=== PATIENT | female | born 1940 ===

== ENCOUNTER 2020-11-09 12:59 | Outpatient (REF) | payer MEDICARE, MEDICAID, SELFPAY ==
[2020-11-09 13:58] LABS: Hematocrit 39.7 % (37-47); Hemoglobin 12.1 g/dl (12.0-16.0)
[2020-11-09 14:40] LABS: Alanine Aminotransferase 47 U/L (0-31); Albumin Level 4.4 g/dL (3.5-5.0); Alkaline Phosphatase 74 U/L (39-117); Anion Gap 15 (12-20); Aspartate Amino Transferase 33 U/L (5-31); Bilirubin Total 0.5 mg/dL (0.0-1.0); Blood Urea Nitrogen 18 mg/dL (9-16); Carbon Dioxide 28 mmol/L (22-29); Chloride 102 mmol/L (96-108); Estimated Glomerular Filt Rate 51; Glucose Random 96 mg/dL (60-115); Potassium 4.3 mmol/L (3.3-5.1); Sodium 141 mmol/L (135-145); Total Protein 7.7 g/dL (6.5-8.0)
== END 2020-11-09 13:00 | disposition home or self-care (01) ==
LOC: HO.HMGCLDS 12:59
PROVIDERS: PCP Internal Medicine; Visit Provider Internal Medicine
DX: G30.9 Alzheimer's disease, unspecified (principal); F02.80 Dementia in other diseases classified elsewhere, unspecified severity, without behavioral disturbance, psychotic disturbance, mood disturbance, and anxiety; F41.9 Anxiety disorder, unspecified; M19.90 Unspecified osteoarthritis, unspecified site; Z91.09 Other allergy status, other than to drugs and biological substances; N39.46 Mixed incontinence; R54 Age-related physical debility
CPT/HCPCS: 36415; 80053; 85014; 85018

== ENCOUNTER 2021-05-20 13:29 | Outpatient (REF) | payer MEDICARE, MEDICAID, SELFPAY ==
[2021-05-20 16:31] LABS: Hematocrit 40.7 % (37.0-47.0); Hemoglobin 12.6 g/dl (12.0-16.0)
[2021-05-20 16:39] LABS: Estimated Average Glucose 108 mg/dL; Hemoglobin A1c % 5.4 %
[2021-05-20 16:53] LABS: Alanine Aminotransferase 10 U/L (0-31); Albumin Level 4.3 g/dL (3.5-5.0); Alkaline Phosphatase 60 U/L (39-117); Anion Gap 10 (12-20); Aspartate Amino Transferase 19 U/L (5-31); Bilirubin Total 0.6 mg/dL (0.0-1.0); Blood Urea Nitrogen 18 mg/dL (9-16); Calcium 10.2 mg/dL (8.4-10.2); Carbon Dioxide 32 mmol/L (22-29); Chloride 103 mmol/L (96-108); Estimated Glomerular Filt Rate 59; Glucose Random 76 mg/dL (60-115); Potassium 5.3 mmol/L (3.3-5.1); Sodium 140 mmol/L (135-145); Total Protein 7.3 g/dL (6.5-8.0)
[2021-05-20 17:13] LABS: TSH reflex Free T4 0.93 uIU/mL (0.32-4.0)
== END 2021-05-20 13:30 | disposition home or self-care (01) ==
LOC: HO.HMGCLDS 13:29
PROVIDERS: Visit Provider Internal Medicine
DX: Z00.01 Encounter for general adult medical examination with abnormal findings (principal); G30.9 Alzheimer's disease, unspecified; F02.80 Dementia in other diseases classified elsewhere, unspecified severity, without behavioral disturbance, psychotic disturbance, mood disturbance, and anxiety; F41.9 Anxiety disorder, unspecified; N39.46 Mixed incontinence; Z91.09 Other allergy status, other than to drugs and biological substances
CPT/HCPCS: 36415; 80053; 83036; 84443; 85014; 85018

== ENCOUNTER 2021-11-24 14:37 | Outpatient (REF) | payer MEDICARE, MEDICAID, SELFPAY ==
[2021-11-24 17:11] LABS: Alanine Aminotransferase 12 U/L (0-31); Albumin Level 4.2 g/dL (3.5-5.0); Alkaline Phosphatase 55 U/L (39-117); Anion Gap 14 (12-20); Aspartate Amino Transferase 20 U/L (5-31); Bilirubin Total 0.3 mg/dL (0.0-1.0); Blood Urea Nitrogen 24 mg/dL (9-16); Calcium 9.1 mg/dL (8.4-10.2); Carbon Dioxide 29 mmol/L (22-29); Chloride 105 mmol/L (96-108); Estimated Glomerular Filt Rate > 60; Glucose Random 108 mg/dL (60-115); Potassium 4.7 mmol/L (3.3-5.1); Sodium 143 mmol/L (135-145)
== END 2021-11-24 14:38 | disposition home or self-care (01) ==
LOC: HO.HMGCLDS 14:37
PROVIDERS: PCP Internal Medicine; Visit Provider Internal Medicine
DX: G30.9 Alzheimer's disease, unspecified (principal); F02.80 Dementia in other diseases classified elsewhere, unspecified severity, without behavioral disturbance, psychotic disturbance, mood disturbance, and anxiety; F41.9 Anxiety disorder, unspecified
CPT/HCPCS: 36415; 80053

== ENCOUNTER 2022-11-09 14:57 | Outpatient (AMB) | payer MEDICARE, MEDICAID, SELFPAY ==
--- NOTE | 2022-11-09 14:59 | MHC.OFFWIV ---
Intake Intake Visit Reasons: Right Hip Pain/Left Arm Pain Patient Tobacco Use Status: Never used Tobacco Allergies No Known Allergies Allergy (Verified 03/23/22 14:23) PFSH Medical History Alzheimers disease Anxiety Arthrosis Environmental allergies Frail elderly Osteoporosis Urinary incontinence, mixed Surgical History No pertinent past surgical history Family History Father No problems noted. Mother HTN (hypertension) Social History Housing: House Alcohol intake: never Patient Tobacco Use Status: Never used Tobacco e-Cigarette/Vaping Use: Never Used Current occupational status: retired Cognitive needs: Yes Hearing needs: No Vision needs: No Coding Diagnoses
[2022-11-09 15:02] VITALS: BP 130/64; PULSE 75; O2SAT 98; BMI 19.8
--- NOTE | 2022-11-09 15:03 | A.OFFPC_ITS ---
Vital Signs 11/09/22 15:02 Height 5 ft 2 in Weight 108 lb BMI 19.8 BP 130/64 Blood Pressure Location Rt brachial Position Sitting Pulse 75 Pulse Source Pulse Oximeter Pulse Oximetry (%) 98 Oxygen Delivery Method Room Air Intake Visit Reasons: Right Hip Pain/Left Arm Pain Allergies No Known Allergies Allergy (Verified 11/09/22 15:02) Tobacco use date assessed: 11/09/22 Fall risk assessment: No Falls in past year Last assessed Fall Risk: 11/09/22 Dental Screening Dental Screen Date: 11/09/22 Did you have a dental visit in the last 12 months?: No Did you have a dental problem in the last 6 months where you did not have access to dental care?: No HPI Right Hip Pain/Left Arm Pain HPI Details 82-year-old female with dementia came in with a chief complaint of pain left shoulder Tender over rotator cuff I have ordered x-ray for her patient son is here he was reluctant to take her to orthopedic but then he agreed Referral placed [facility] Medical History Alzheimers disease Anxiety Arthrosis Environmental allergies Frail elderly Osteoporosis Urinary incontinence, mixed Surgical History No pertinent past surgical history Family History Father No problems noted. Mother HTN (hypertension) Social History Housing: House Alcohol intake: never Patient Tobacco Use Status: Never used Tobacco e-Cigarette/Vaping Use: Never Used Current occupational status: retired Cognitive needs: Yes Hearing needs: No Vision needs: No Questionnaire Thrive Questionnaire Date Thrive assessed: 11/24/21 AUDIT C Alcohol Use Questionnaire (AUDIT-C) 1. How often do you have a drink containing alcohol?: Never 3. How often do you have six or more drinks on one occasion?: Never Total Score: 0 AVTAR-7 AMB Questionnaire AVTAR-7 Date AVTAR - 7 assessed: 11/24/21 Source: Developed by Drs. Sumit Mancera, Gisella Olivares, Lew Rudolph and colleagues, with an educational david from [employer]. Review of Systems Const All systems reviewed & are unremarkable except as noted in HPI and below Physical exam (Primary Care) Vital Signs: Last Vital Signs Pulse 75 11/09/22 15:02 BP 130/64 11/09/22 15:02 Pulse Ox 98 11/09/22 15:02 Oxygen Delivery Method Room Air 11/09/22 15:02 BMI result Body Mass Index 19.8 Tobacco/Smoking Status: Tobacco use Status Tobacco use date assessed 11/09/22 11/09/22 15:05 Patient Tobacco Use Status Never used Tobacco 11/09/22 15:05 e-Cigarette/Vaping Use Never Used 11/09/22 15:05 Thrive Assessment: Date of Thrive Assessment Date Thrive assessed 11/24/21 11/09/22 15:05 Const General: no acute distress Orientation/consciousness: patient oriented x3 Eyes General: appearance normal, both eyes and all related structures Resp Effort & Inspection: normal respiratory effort and able to speak in complete sentences Auscultation: clear to auscultation bilaterally Neuro General: patient oriented x3 Extrem Shoulder/upper arm images: 1. Tender with palpation, range of motion limited because of pain Psych Mental Status: mental status grossly normal Assessment and Plan Assessment & Plan (1) Shoulder pain: Code(s): M25.519 - Pain in unspecified shoulder Plan 82-year-old female with dementia came in with a chief complaint of pain left shoulder Tender over rotator cuff I have ordered x-ray for her patient son is here he was reluctant to take her to orthopedic but then he agreed Referral placed Orders: Orders XR shoulder LT min 2V Today M25.519 - Pain in unspecified shoulder Referrals Orthopedics Referral M25.519 - Pain in unspecified shoulder Coding Level of Care Code Est Pt Level 3 (42078) Diagnoses Shoulder pain M25.519
== END 2022-11-09 15:57 | disposition home or self-care (01) ==
PROVIDERS: PCP Internal Medicine; Visit Provider Internal Medicine
DX: M25.519 Pain in unspecified shoulder (principal)
CPT/HCPCS: 99213

== ENCOUNTER 2022-11-09 15:13 | Outpatient (REF) | payer MEDICARE, MEDICAID, SELFPAY ==
--- NOTE | ~2022-11-09 | XR_ITS ---
EXAMINATION: XR SHOULDER, LEFT CLINICAL INFORMATION: Pain COMPARISON: None available. TECHNIQUE: Three views of the left shoulder. FINDINGS: Bones have normal alignment. No acute fracture or subluxation. The soft tissues are unremarkable. There are small marginal osteophytes of the mildly degenerated acromioclavicular joint. The humeral head is well-positioned over the intact glenoid. The glenohumeral joint space is maintained. Incidentally noted is focal subcortical cystlike lucency of the superolateral aspect of the humeral head. No suspicious bone lesion. The acromiohumeral distance is normal. No evidence of calcium deposition within rotator cuff tendons. XR/XR shoulder LT min 2V IMPRESSION: * Mild osteoarthritis of the acromioclavicular joint. * No evidence of calcific tendinopathy.
== END 2022-11-09 15:14 | disposition home or self-care (01) ==
LOC: HO.HMGCX 15:13
PROVIDERS: PCP Internal Medicine; Visit Provider Internal Medicine
DX: M25.512 Pain in left shoulder (principal)
CPT/HCPCS: 73030

== ENCOUNTER 2023-04-12 11:27 | Outpatient (AMB) | payer MEDICARE, MEDICAID, SELFPAY ==
[2023-04-12 11:28] VITALS: BP 118/62; PULSE 62; O2SAT 99; BMI 19.9
--- NOTE | 2023-04-12 11:28 | MHC.PC.OV ---
Vital Signs 04/12/23 11:28 Height 5 ft 2 in Weight 109 lb BMI 19.9 BP 118/62 Blood Pressure Location Rt brachial Position Sitting Pulse 62 Pulse Source Pulse Oximeter Pulse Oximetry (%) 99 Oxygen Delivery Method Room Air Intake Visit Reasons: PE/ Insurance Covered Allergies No Known Allergies Allergy (Verified 04/12/23 11:30) Medication List - Last Reconciled 04/12/23 by Rajni Holliday MD acetaminophen 325 mg PO TID PRN 90 days [Adult diapers 3 times a day] donepezil 10 mg PO DAILY facial-body wipes As directed fluoxetine 40 mg PO DAILY fluticasone propionate 50 mcg/actuation 1 spray intranasal DAILY food supplemt, lactose-reduced (Ensure oral liquid) 1 ea PO DAILY 90 days latex gloves (Latex Gloves, Medium) As directed loratadine 10 mg PO DAILY 90 days memantine 10 mg PO BID naphazoline-pheniramine 0.025-0.3 % (Eye Allergy Relief (naphazoline-pheniramine)) 1 drp ophthalmic (eye) QID PRN 30 days [Personal cleansing cloths 1 pkg topical DIRECTED] Tobacco use date assessed: 04/12/23 Fall risk assessment: 1 Fall in past year Last assessed Fall Risk: 04/12/23 Dental Screening Dental Screen Date: 04/12/23 Did you have a dental visit in the last 12 months?: No Was dental information given to patient?: No HPI PE/ Insurance Covered HPI Details Patient is here for physical examination She lives in the same house as hangersmith and need a paperwork filled She is also due for labs Patient have severe dementia and has been having difficulty gaining weight Family is requesting a script for ensure which I have provided. She also have a severe anxiety but is doing better with fluoxetine. Family wants a regular flu vaccine as they are not able to take her to pharmacy for senior dose. Breast exam declined Follow-up 4 months physical exam 1 year [facility] Medical History Arthrosis Urinary incontinence, mixed Frail elderly Osteoporosis Anxiety Environmental allergies Alzheimers disease Surgical History No pertinent past surgical history Family History Father No problems noted. Mother HTN (hypertension) Social History Housing: House Alcohol intake: never Patient Tobacco Use Status: Never used Tobacco e-Cigarette/Vaping Use: Never Used Current occupational status: retired Cognitive needs: Yes Hearing needs: No Vision needs: No Questionnaire PHQ-9 Over the last 2 weeks, how often have you been bothered by any of the following problems? 1. Little interest or pleasure in doing things: more than half the days 2. Feeling down, depressed, or hopeless: several days 3. Trouble falling or staying asleep, or sleeping too much: more than half the days 4. Feeling tired or having little energy: more than half the days 5. Poor appetite or overeating: nearly every day 6. Feeling bad about yourself - or that you are a failure or have let yourself or your family down: several days 7. Trouble concentrating on things, such as reading the newspaper or watching television: more than half the days 8. Moving or speaking so slowly that other people could have noticed. Or the opposite - being so fidgety or restless that you have been moving around a lot more than usual: more than half the days 9. Thoughts that you would be better off or of hurting yourself in some way: more than half the days Total score: 17 Depression Screening Interpretation: Positive Depression Screening Follow-up: Existing condition and In treatment Depression Screening Done: Yes 23420 - PHQ-9 Billing: Yes Source: Developed by Drs. Sumit Mancera, Gisella Olivares, Lew Rudolph and colleagues, with an educational david from [employer]. Thrive Questionnaire Date Thrive assessed: 04/12/23 I am a: Patient What is your living situation today?: I have a steady place to live Within the past 12 months, did the food you bought not last and you didn't have the money to get more?: Sometimes True Within the past 12 months, did you worry whether your food would run out before you got money to buy more?: Sometimes True Do you have trouble paying for medicines?: No Do you have trouble getting transportation to medical appointments?: No Do you have trouble paying your heating and electricity bill?: No Do you have trouble taking care of your child, family member or friend?: Yes Do you have trouble with day-to-day activities such as bathing, preparing meals, shopping, managing finances, etc.?: Yes Are you currently unemployed and looking for a job?: Yes Are you interested in more education?: No Please select the resources that you would like help with: None Currently or been in a relationship where the following occur: no concerns reported AUDIT C Alcohol Use Questionnaire (AUDIT-C) 1. How often do you have a drink containing alcohol?: Never Total Score: 0 AVTAR-7 AMB Questionnaire AVTAR-7 Date AVTAR - 7 assessed: 04/12/23 Feeling nervous, anxious, or on edge: 0 = Not at all Not being able to stop or control worryin = Not at all Worrying too much about different things: 0 = Not at all Trouble relaxin = Not at all Being so restless that it is hard to sit still: 0 = Not at all Becoming easily annoyed or irritable: 0 = Not at all Feeling afraid as if something awful might happen: 0 = Not at all Total AVTAR-7 score (0-4 normal; 5-9 mild; 10-14 moderate; 15-21 severe): 0 Source: Developed by Drs. Sumit Mancera, Gisella Olivares, Lew Rudolph and colleagues, with an educational david from [employer]. AVTAR-7 Assessment Billing AVTAR-7 Assessment Tool: AVTAR-7 Assessment 55383 Review of Systems Const Denies chills, Denies fever(s) and Denies headache(s) ENT Denies headache(s), Denies nasal discharge, Denies nasal obstruction, Denies odynophagia and Denies sinus pain Card Denies chest pain at rest and Denies chest pain with activity Resp Denies cough and Denies hemoptysis GI Denies diarrhea, Denies odynophagia, Denies vomiting and Denies hematemesis Reports as per HPI Skin/Breast Reports as per HPI Neuro Denies Neuro-related abnormal movements, Denies Abnormal speech present and Denies headache(s) Endo Reports as per HPI Jose/Lymph Reports as per HPI Aller/Immun Reports as per HPI Physical exam (Primary Care) Vital Signs: Last Vital Signs Pulse 62 04/12/23 11:28 BP 118/62 04/12/23 11:28 Pulse Ox 99 04/12/23 11:28 Oxygen Delivery Method Room Air 04/12/23 11:28 BMI result Body Mass Index 19.9 Tobacco/Smoking Status: Tobacco use Status Tobacco use date assessed 04/12/23 04/12/23 11:32 Patient Tobacco Use Status Never used Tobacco 04/12/23 11:32 e-Cigarette/Vaping Use Never Used 04/12/23 11:32 PHQ-9: PHQ-9 Score PHQ-9: Total score 17 04/12/23 12:03 Depression Screening Interpretation: Positive Depression Screening Follow-up: Existing condition and In treatment Thrive Assessment: Date of Thrive Assessment Date Thrive assessed 04/12/23 04/12/23 11:58 Currently or been in a relationship where the following occur: no concerns reported Const General: cooperative, comfortable and no acute distress Orientation/consciousness: patient oriented x3 HENMT Head: Yes normocephalic and Yes atraumatic Eyes General: appearance normal, both eyes and all related structures Pupils: Equal, round and reactive pupils present EOM: EOMs intact bilaterally Neck Neck: Yes supple and No lymphadenopathy Thyroid: Thyroid normal Lymphatic: no lymphadenopathy noted Resp Effort & Inspection: normal respiratory effort and able to speak in complete sentences Auscultation: clear to auscultation bilaterally Cardio Heart sounds: S1 normal heart sound present and S2 normal heart sound present GI Palpation (GI): Soft to palpation and nontender Auscultation: normal bowel sounds General: Yes no CVA tenderness Back/Spine/Pelvis Back: no CVA tenderness Skin General skin exam: elasticity normal and turgor normal Neuro General: patient oriented x3 Cranial nerves: Yes Equal, round and reactive pupils present Speech: No Abnormal speech present Extrem General: Yes normal exam except as noted and No edema Office Procedures Flu Questionnaire Does the patient have a severe egg allergy?: No Does the patient have severe life threatening allergies?: No Does the patient have a fever or illness today?: No Has the patient ever had Guillain-Tangier Syndrome?: No Has the patient ever had any past reaction to a flu shot?: No Immunizations flu vacc [id number] 6mos up(PF) 60 mcg(15 mcgx4)/0.5 mL IM syringe Performing Provider: Rajni Holliday MD Performing Location: [facility] Administered by: Lauro Jewell CMA on 04/12/23 12:03 Dose Route Admin Location Dispensed Lot Number Expiration Date 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 0.5 mL IM Left Deltoid 0.5 mL [id number] 10/08/23 92270-408-04 [employer] VIS Given Date VIS Provided VIS Publication Date 04/12/23 Single Vaccine 20 Eligibility Eligibility Date Funding Source Not [facility] Eligible 04/12/23 Private Assessment and Plan Assessment & Plan (1) Encounter for general adult medical examination with abnormal findings: Code(s): Z00.01 - Encounter for general adult medical examination with abnormal findings (2) Urinary incontinence, mixed: Code(s): N39.46 - Mixed incontinence (3) Frail elderly: Code(s): R54 - Age-related physical debility (4) Osteoporosis: Code(s): M81.0 - Age-related osteoporosis without current pathological fracture Qualifiers: Osteoporosis type: age-related Presence of current pathological fracture: without current pathological fracture Qualified Code(s): M81.0 - Age-related osteoporosis without current pathological fracture (5) Anxiety: Code(s): F41.9 - Anxiety disorder, unspecified (6) Environmental allergies: Code(s): Z91.09 - Other allergy status, other than to drugs and biological substances (7) Alzheimers disease: Code(s): G30.9 - Alzheimer's disease, unspecified; F02.80 - Dementia in other diseases classified elsewhere, unspecified severity, without behavioral disturbance, psychotic disturbance, mood disturbance, and anxiety (8) Lower back pain: Code(s): M54.5 - Low back pain Qualifiers: Back pain laterality: bilateral Chronicity: chronic Sciatica presence: without sciatica Qualified Code(s): M54.50 - Low back pain, unspecified; G89.29 - Other chronic pain (9) Arthrosis: Code(s): M19.90 - Unspecified osteoarthritis, unspecified site Plan Patient is here for physical examination She lives in the same house as hangersmith and need a paperwork filled She is also due for labs Patient have severe dementia and has been having difficulty gaining weight Family is requesting a script for ensure which I have provided. She also have a severe anxiety but is doing better with fluoxetine. Allergies are stable Patient also have osteoporosis I have added vitamin-D level Multiple joint arthritis stable Family wants a regular flu vaccine as they are not able to take her to pharmacy for senior dose. Follow-up 4 months physical exam 1 year Orders: Orders Vitamin B12 Today F02.80 - Dementia in other diseases classified elsewhere, unspecified severity, without behavioral disturbance, psychotic disturbance, mood disturbance, and anxiety, F41.9 - Anxiety disorder, unspecified, G30.9 - Alzheimer's disease, unspecified, M54.5 - Low back pain, M81.0 - Age-related osteoporosis without current pathological fracture, N39.46 - Mixed incontinence, R54 - Age-related physical debility, Z00.01 - Encounter for general adult medical examination with abnormal findings, Z91.09 - Other allergy status, other than to drugs and biological substances Vitamin D 25-OH (D2 and D3) Today F02.80 - Dementia in other diseases classified elsewhere, unspecified severity, without behavioral disturbance, psychotic disturbance, mood disturbance, and anxiety, F41.9 - Anxiety disorder, unspecified, G30.9 - Alzheimer's disease, unspecified, M54.5 - Low back pain, M81.0 - Age-related osteoporosis without current pathological fracture, N39.46 - Mixed incontinence, R54 - Age-related physical debility, Z00.01 - Encounter for general adult medical examination with abnormal findings, Z91.09 - Other allergy status, other than to drugs and biological substances Complete Blood Count Auto Diff Today F02.80 - Dementia in other diseases classified elsewhere, unspecified severity, without behavioral disturbance, psychotic disturbance, mood disturbance, and anxiety, F41.9 - Anxiety disorder, unspecified, G30.9 - Alzheimer's disease, unspecified, M19.90 - Unspecified osteoarthritis, unspecified site, M54.5 - Low back pain, M81.0 - Age-related osteoporosis without current pathological fracture, N39.46 - Mixed incontinence, R54 - Age-related physical debility, Z00.01 - Encounter for general adult medical examination with abnormal findings, Z91.09 - Other allergy status, other than to drugs and biological substances Comprehensive Met. Panel Today F02.80 - Dementia in other diseases classified elsewhere, unspecified severity, without behavioral disturbance, psychotic disturbance, mood disturbance, and anxiety, F41.9 - Anxiety disorder, unspecified, G30.9 - Alzheimer's disease, unspecified, M54.5 - Low back pain, M81.0 - Age-related osteoporosis without current pathological fracture, N39.46 - Mixed incontinence, R54 - Age-related physical debility, Z00.01 - Encounter for general adult medical examination with abnormal findings, Z91.09 - Other allergy status, other than to drugs and biological substances TSH reflex Free T4 Today F02.80 - Dementia in other diseases classified elsewhere, unspecified severity, without behavioral disturbance, psychotic disturbance, mood disturbance, and anxiety, F41.9 - Anxiety disorder, unspecified, G30.9 - Alzheimer's disease, unspecified, M54.5 - Low back pain, M81.0 - Age-related osteoporosis without current pathological fracture, N39.46 - Mixed incontinence, R54 - Age-related physical debility, Z00.01 - Encounter for general adult medical examination with abnormal findings, Z91.09 - Other allergy status, other than to drugs and biological substances LDL Cholesterol Direct Today F02.80 - Dementia in other diseases classified elsewhere, unspecified severity, without behavioral disturbance, psychotic disturbance, mood disturbance, and anxiety, F41.9 - Anxiety disorder, unspecified, G30.9 - Alzheimer's disease, unspecified, M54.5 - Low back pain, M81.0 - Age-related osteoporosis without current pathological fracture, N39.46 - Mixed incontinence, R54 - Age-related physical debility, Z00.01 - Encounter for general adult medical examination with abnormal findings, Z91.09 - Other allergy status, other than to drugs and biological substances Influenza [id number] Immunization Today Z23 - Encounter for immunization Coding Level of Care Code Est Pt Prev Care >65y(95417) Diagnoses Encounter for general adult medical examination with abnormal findings Z00.01 Urinary incontinence, mixed N39.46 Frail elderly R54 Age-related osteoporosis without current pathological fracture M81.0 Osteoporosis type: age-related Presence of current pathological fracture: without current pathological fracture Anxiety F41.9 Environmental allergies Z91.09 Alzheimers disease G30.9; F02.80 Chronic bilateral low back pain without sciatica M54.50; G89.29 Back pain laterality: bilateral Chronicity: chronic Sciatica presence: without sciatica Arthrosis M19.90 Additional Codes AVTAR-7 Assessment Billing - AVTAR-7 Assessment Tool: AVTAR-7 Assessment 20213 ([id number])
== END 2023-04-12 12:01 | disposition home or self-care (01) ==
PROVIDERS: Visit Provider Internal Medicine
DX: Z00.00 Encounter for general adult medical examination without abnormal findings (principal); G30.9 Alzheimer's disease, unspecified; F02.80 Dementia in other diseases classified elsewhere, unspecified severity, without behavioral disturbance, psychotic disturbance, mood disturbance, and anxiety; Z23 Encounter for immunization; N39.46 Mixed incontinence; R54 Age-related physical debility; M81.0 Age-related osteoporosis without current pathological fracture; F41.9 Anxiety disorder, unspecified; Z91.09 Other allergy status, other than to drugs and biological substances; M54.50 Low back pain, unspecified; G89.29 Other chronic pain; M19.90 Unspecified osteoarthritis, unspecified site
CPT/HCPCS: 90471; 90686; 96127; 99397

== ENCOUNTER 2023-04-12 12:05 | Outpatient (REF) | payer OTHER, SELFPAY | END 2023-04-12 12:06 | disposition home or self-care (01) | LOC: HO.HMGCLDS 12:05 | PROVIDERS: PCP Internal Medicine; Visit Provider Internal Medicine | DX: Z00.01 Encounter for general adult medical examination with abnormal findings (principal); N39.46 Mixed incontinence; R54 Age-related physical debility; M81.0 Age-related osteoporosis without current pathological fracture; F41.9 Anxiety disorder, unspecified; G30.9 Alzheimer's disease, unspecified; F02.80 Dementia in other diseases classified elsewhere, unspecified severity, without behavioral disturbance, psychotic disturbance, mood disturbance, and anxiety; M19.90 Unspecified osteoarthritis, unspecified site; M54.50 Low back pain, unspecified; Z91.09 Other allergy status, other than to drugs and biological substances | CPT/HCPCS: 36415; 80053; 82306; 82607; 83721; 84443; 85025 ==

== ENCOUNTER 2023-09-06 13:23 | Outpatient (AMB) | payer OTHER, SELFPAY ==
[2023-09-06 13:25] VITALS: BP 112/58; PULSE 62; O2SAT 98; BMI 20.2
--- NOTE | 2023-09-06 13:25 | MHC.PC.OV ---
Vital Signs 09/06/23 13:25 Height 5 ft 2 in Weight 110 lb 4 oz BMI 20.2 BP 112/58 L Blood Pressure Location Lt brachial Position Sitting Pulse 62 Pulse Source Pulse Oximeter Pulse Oximetry (%) 98 Oxygen Delivery Method Room Air Intake Visit Reasons: 4 month follow up Allergies No Known Allergies Allergy (Verified 09/06/23 13:25) Medication List - Last Reconciled 09/06/23 by Rajni Holliday MD acetaminophen 325 mg PO TID PRN 90 days [Adult diapers with tabs 3 times a day] donepezil 10 mg PO DAILY facial-body wipes As directed fluoxetine 40 mg PO DAILY fluticasone propionate 50 mcg/actuation 1 spray intranasal DAILY food supplemt, lactose-reduced (Ensure oral liquid) 1 ea PO DAILY 90 days latex gloves (Latex Gloves, Medium) As directed-3 pair per day loratadine 10 mg PO DAILY 90 days memantine 10 mg PO BID naphazoline-pheniramine 0.025-0.3 % (Eye Allergy Relief (naphazoline-pheniramine)) 1 drp ophthalmic (eye) QID PRN 30 days [Personal cleansing cloths As directed] Tobacco use date assessed: 09/06/23 Fall risk assessment: No Falls in past year Last assessed Fall Risk: 09/06/23 Dental Screening Dental Screen Date: 09/06/23 Did you have a dental visit in the last 12 months?: No Did you have a dental problem in the last 6 months where you did not have access to dental care?: No Was dental information given to patient?: No HPI 4 month follow up HPI Details Patient is 83-year-old female came in today for her regular follow-up appointment Patient have severe dementia she is dependent family for all her needs She wears diapers and sometimes have bowel movement in the diaper as well. Her daughter is here with patient and is requesting a script for body wipes has patient sometimes declined to take a shower. She is now drinking ensure her weight is stable She also have a severe anxiety but is doing better with fluoxetine. Allergies are stable , Flonase script sent Patient also have osteoporosis I have added vitamin-D level Multiple joint arthritis stable She had elevated lipids but family does not want any treatment for that Patient will return in 4 months for follow-up appointment [facility] Medical History Arthrosis Urinary incontinence, mixed Frail elderly Osteoporosis Anxiety Environmental allergies Alzheimers disease Surgical History No pertinent past surgical history Family History Father No problems noted. Mother HTN (hypertension) Social History Housing: House Alcohol intake: never Patient Tobacco Use Status: Never used Tobacco e-Cigarette/Vaping Use: Never Used service: No Current occupational status: retired Cognitive needs: Yes Hearing needs: No Vision needs: No Questionnaire Thrive Questionnaire Date Thrive assessed: 04/12/23 AUDIT C Alcohol Use Questionnaire (AUDIT-C) 1. How often do you have a drink containing alcohol?: Never 3. How often do you have six or more drinks on one occasion?: Never Total Score: 0 Score Reviewed/Action Taken: Yes AVTAR-7 AMB Questionnaire AVTAR-7 Date AVTAR - 7 assessed: 04/12/23 Source: Developed by Drs. Sumit Mancera, Gisella Olivares, Lew Rudolph and colleagues, with an educational david from [employer]. Review of Systems Const Denies chills and Denies fever(s) ENT Denies epistaxis and Denies nasal discharge Card Denies chest pain Resp Denies chest congestion, Denies cough and Denies hemoptysis GI Denies diarrhea and Denies nausea Skin/Breast Denies rash Neuro Reports no additional complaints Psych Reports no additional complaints Endo Reports no additional complaints Physical exam (Primary Care) Vital Signs: Last Vital Signs Pulse 62 09/06/23 13:25 BP 112/58 L 09/06/23 13:25 Pulse Ox 98 09/06/23 13:25 Oxygen Delivery Method Room Air 09/06/23 13:25 BMI result Body Mass Index 20.2 Tobacco/Smoking Status: Tobacco use Status Tobacco use date assessed 09/06/23 09/06/23 13:27 Patient Tobacco Use Status Never used Tobacco 09/06/23 13:27 e-Cigarette/Vaping Use Never Used 09/06/23 13:27 Thrive Assessment: Date of Thrive Assessment Date Thrive assessed 04/12/23 09/06/23 13:27 Const General: cooperative, comfortable and no acute distress HENMT Head: Yes normocephalic Eyes General: appearance normal, both eyes and all related structures Neck Neck: Yes supple Resp Effort & Inspection: normal respiratory effort, no cough and no stridor Cardio Rhythm: regular rhythm Heart sounds: S1 normal heart sound present and S2 normal heart sound present Skin General skin exam: turgor normal Neuro General: tone normal and moves all extremities Extrem Right lower extremity: no edema Left lower extremity: no edema Assessment and Plan Assessment & Plan (1) Alzheimers disease: Code(s): G30.9 - Alzheimer's disease, unspecified; F02.80 - Dementia in other diseases classified elsewhere, unspecified severity, without behavioral disturbance, psychotic disturbance, mood disturbance, and anxiety (2) Urinary incontinence, mixed: Code(s): N39.46 - Mixed incontinence (3) Frail elderly: Code(s): R54 - Age-related physical debility (4) Anxiety: Code(s): F41.9 - Anxiety disorder, unspecified (5) Environmental allergies: Code(s): Z91.09 - Other allergy status, other than to drugs and biological substances (6) Lower back pain: Code(s): M54.5 - Low back pain Qualifiers: Back pain laterality: bilateral Chronicity: chronic Sciatica presence: without sciatica Qualified Code(s): M54.50 - Low back pain, unspecified; G89.29 - Other chronic pain (7) Arthrosis: Code(s): M19.90 - Unspecified osteoarthritis, unspecified site Plan Patient is 83-year-old female came in today for her regular follow-up appointment Patient have severe dementia she is dependent family for all her needs She wears diapers and sometimes have bowel movement in the diaper as well. Her daughter is here with patient and is requesting a script for body wipes has patient sometimes declined to take a shower. She is now drinking ensure her weight is stable She also have a severe anxiety but is doing better with fluoxetine. Allergies are stable , Flonase script sent Patient also have osteoporosis I have added vitamin-D level Multiple joint arthritis stable She had elevated lipids but family does not want any treatment for that Patient will return in 4 months for follow-up appointment Medications: Refilled fluticasone propionate 50 mcg/actuation 1 spray intranasal DAILY 16 mL 3RF [cleansing wips] As directed 100 ea 11RF F02.80 - Dementia in other diseases classified elsewhere, unspecified severity, without behavioral disturbance, psychotic disturbance, mood disturbance, and anxiety, G30.9 - Alzheimer's disease, unspecified, M19.90 - Unspecified osteoarthritis, unspecified site, N39.46 - Mixed incontinence, R54 - Age-related physical debility Coding Level of Care Code Est Pt Level 4 (68200) Complex EM visit Add On G2211 Diagnoses Alzheimers disease G30.9; F02.80 Urinary incontinence, mixed N39.46 Frail elderly R54 Anxiety F41.9 Environmental allergies Z91.09 Chronic bilateral low back pain without sciatica M54.50; G89.29 Back pain laterality: bilateral Chronicity: chronic Sciatica presence: without sciatica Arthrosis M19.90
== END 2023-09-06 13:46 | disposition home or self-care (01) ==
PROVIDERS: PCP Internal Medicine; Visit Provider Internal Medicine
DX: G30.9 Alzheimer's disease, unspecified (principal); F02.80 Dementia in other diseases classified elsewhere, unspecified severity, without behavioral disturbance, psychotic disturbance, mood disturbance, and anxiety; N39.46 Mixed incontinence; R54 Age-related physical debility; F41.9 Anxiety disorder, unspecified; Z91.09 Other allergy status, other than to drugs and biological substances; M54.50 Low back pain, unspecified; G89.29 Other chronic pain; M19.90 Unspecified osteoarthritis, unspecified site
CPT/HCPCS: 99214; G2211

== ENCOUNTER → 2024-01-02 13:40 | Outpatient (BNVA) | payer OTHER, SELFPAY | PROVIDERS: PCP Internal Medicine; Visit Provider Internal Medicine ==

== ENCOUNTER 2024-01-12 12:07 | Outpatient (AMB) | payer OTHER, SELFPAY ==
[2024-01-12 12:11] VITALS: BP 136/68; PULSE 86; O2SAT 96
--- NOTE | 2024-01-12 12:11 | MHC.PC.OV ---
Vital Signs 01/12/24 12:11 Height 5 ft 2 in Weight 109 lb 6 oz BMI 20.0 BP 136/68 Blood Pressure Location Lt brachial Position Sitting Pulse 86 Pulse Source Pulse Oximeter Pulse Oximetry (%) 96 Oxygen Delivery Method Room Air Intake Visit Reasons: 4 month follow up - see comments Allergies No Known Allergies Allergy (Verified 01/12/24 12:11) Medication List - Last Reconciled 01/12/24 by Rajni Holliday MD [cleansing wips As directed] acetaminophen 325 mg PO TID PRN 90 days [Adult diapers with tabs 3 times a day] donepezil 5 mg PO DAILY facial-body wipes As directed fluoxetine 40 mg PO DAILY fluticasone propionate 50 mcg/actuation 1 spray intranasal DAILY food supplemt, lactose-reduced (Ensure oral liquid) 1 ea PO DAILY 90 days hydroxyzine HCl 25 mg PO BEDTIME latex gloves (Latex Gloves, Medium) As directed-3 pair per day loratadine 10 mg PO DAILY 90 days memantine 10 mg PO BID naphazoline-pheniramine 0.025-0.3 % (Eye Allergy Relief (naphazoline-pheniramine)) 1 drp ophthalmic (eye) QID PRN 30 days Tobacco use date assessed: 09/06/23 Dental Screening Dental Screen Date: 09/06/23 HPI 4 month follow up - see comments HPI Details Patient is 83-year-old female came in today for her regular follow-up appointment Patient has seen neurologist recently and was given hydroxyzine to sleep at night Daughter says that medication has not helped her at all Patient has developed a habit of getting up and sometimes she tried to leave the house now Patient have severe dementia she is dependent family for all her needs She wears diapers and sometimes have bowel movement in the diaper as well. Her daughter is here with patient and is requesting a script for body wipes has patient sometimes declined to take a shower. She is now drinking ensure her weight is stable She also have a severe anxiety but is doing better with fluoxetine. Allergies are stable , Flonase script sent Patient also have osteoporosis I have added vitamin-D level Multiple joint arthritis stable She had elevated lipids but family does not want any treatment for that She has appointment in April for physical examination [facility] Medical History Arthrosis Urinary incontinence, mixed Frail elderly Osteoporosis Anxiety Environmental allergies Alzheimers disease Surgical History No pertinent past surgical history Family History Father No problems noted. Mother HTN (hypertension) Social History Housing: House Alcohol intake: never Patient Tobacco Use Status: Never used Tobacco e-Cigarette/Vaping Use: Never Used service: No Current occupational status: retired Cognitive needs: Yes Hearing needs: No Vision needs: No Questionnaire PHQ-9 Over the last 2 weeks, how often have you been bothered by any of the following problems? 1. Little interest or pleasure in doing things: several days 2. Feeling down, depressed, or hopeless: not at all 3. Trouble falling or staying asleep, or sleeping too much: not at all 4. Feeling tired or having little energy: several days 5. Poor appetite or overeating: several days 6. Feeling bad about yourself - or that you are a failure or have let yourself or your family down: not at all 7. Trouble concentrating on things, such as reading the newspaper or watching television: more than half the days 8. Moving or speaking so slowly that other people could have noticed. Or the opposite - being so fidgety or restless that you have been moving around a lot more than usual: more than half the days 9. Thoughts that you would be better off or of hurting yourself in some way: not at all Total score: 7 Depression Screening Interpretation: Negative Depression Screening Done: Yes 51374 - PHQ-9 Billing: Yes Source: Developed by Drs. Sumit Mancera, Gisella Olivares, Lew Rudolph and colleagues, with an educational david from [employer]. Thrive Questionnaire Date Thrive assessed: 04/12/23 I am a: Patient What is your living situation today?: I have a steady place to live Within the past 12 months, did the food you bought not last and you didn't have the money to get more?: Sometimes True Within the past 12 months, did you worry whether your food would run out before you got money to buy more?: Sometimes True Do you have trouble paying for medicines?: No Do you have trouble getting transportation to medical appointments?: No Do you have trouble paying your heating and electricity bill?: No Do you have trouble taking care of your child, family member or friend?: No Do you have trouble with day-to-day activities such as bathing, preparing meals, shopping, managing finances, etc.?: Yes Are you interested in more education?: No Please select the resources that you would like help with: None Currently or been in a relationship where the following occur: No concerns reported THRIVE Score: 2 AUDIT C Alcohol Use Questionnaire (AUDIT-C) 1. How often do you have a drink containing alcohol?: Never Total Score: 0 AVTAR-7 AMB Questionnaire AVTAR-7 Date AVTAR - 7 assessed: 04/12/23 Feeling nervous, anxious, or on edge: 0 = Not at all Not being able to stop or control worryin = Several days Worrying too much about different things: 0 = Not at all Trouble relaxin = Several days Being so restless that it is hard to sit still: 1 = Several days Becoming easily annoyed or irritable: 2 = More than half the days Feeling afraid as if something awful might happen: 0 = Not at all Total AVTAR-7 score (0-4 normal; 5-9 mild; 10-14 moderate; 15-21 severe): 5 Source: Developed by Drs. Sumit Mancera, Gisella Olivares, Lew Rudolph and colleagues, with an educational david from [employer]. Review of Systems Const Denies chills and Denies fever(s) ENT Denies epistaxis and Denies nasal discharge Card Denies chest pain Resp Denies chest congestion, Denies cough and Denies hemoptysis GI Denies diarrhea and Denies nausea Skin/Breast Denies rash Neuro Reports no additional complaints Psych Reports no additional complaints Endo Reports no additional complaints Physical exam (Primary Care) Vital Signs: Last Vital Signs Pulse 86 01/12/24 12:11 BP 136/68 01/12/24 12:11 Pulse Ox 96 01/12/24 12:11 Oxygen Delivery Method Room Air 01/12/24 12:11 BMI result Body Mass Index 20.0 Tobacco/Smoking Status: Tobacco use Status Tobacco use date assessed 09/06/23 01/12/24 12:13 Patient Tobacco Use Status Never used Tobacco 01/12/24 12:13 e-Cigarette/Vaping Use Never Used 01/12/24 12:13 PHQ-9: PHQ-9 Score PHQ-9: Total score 7 01/12/24 12:13 Depression Screening Interpretation: Negative Thrive Assessment: Date of Thrive Assessment Date Thrive assessed 04/12/23 01/12/24 12:13 Currently or been in a relationship where the following occur: No concerns reported Const General: cooperative, comfortable and no acute distress HENMT Head: Yes normocephalic Eyes General: appearance normal, both eyes and all related structures Neck Neck: Yes supple Resp Effort & Inspection: normal respiratory effort, no cough and no stridor Cardio Rhythm: regular rhythm Heart sounds: S1 normal heart sound present and S2 normal heart sound present Skin General skin exam: turgor normal Neuro General: tone normal and moves all extremities Extrem Right lower extremity: no edema Left lower extremity: no edema Coding Level of Care Code Est Pt Level 4 (81553) Diagnoses Alzheimers disease G30.9; F02.80 Environmental allergies Z91.09 Age-related osteoporosis without current pathological fracture M81.0 Osteoporosis type: age-related Presence of current pathological fracture: without current pathological fracture Frail elderly R54 Urinary incontinence, mixed N39.46 Lack of appetite R63.0 Assessment & Plan Assessment & Plan (1) Alzheimers disease: Code(s): G30.9 - Alzheimer's disease, unspecified; F02.80 - Dementia in other diseases classified elsewhere, unspecified severity, without behavioral disturbance, psychotic disturbance, mood disturbance, and anxiety Category: Medical (2) Environmental allergies: Code(s): Z91.09 - Other allergy status, other than to drugs and biological substances Category: Medical (3) Osteoporosis: Code(s): M81.0 - Age-related osteoporosis without current pathological fracture Category: Medical Qualifiers: Osteoporosis type: age-related Presence of current pathological fracture: without current pathological fracture Qualified Code(s): M81.0 - Age-related osteoporosis without current pathological fracture (4) Frail elderly: Code(s): R54 - Age-related physical debility Category: Medical (5) Urinary incontinence, mixed: Code(s): N39.46 - Mixed incontinence Category: Medical (6) Lack of appetite: Code(s): R63.0 - Anorexia Category: Medical Plan Patient is 83-year-old female came in today for her regular follow-up appointment Patient has seen neurologist recently and was given hydroxyzine to sleep at night Daughter says that medication has not helped her at all Patient has developed a habit of getting up and sometimes she tried to leave the house now Patient have severe dementia she is dependent family for all her needs She wears diapers and sometimes have bowel movement in the diaper as well. Her daughter is here with patient and is requesting a script for body wipes has patient sometimes declined to take a shower. She is now drinking ensure her weight is stable She also have a severe anxiety but is doing better with fluoxetine. Allergies are stable , Flonase script sent Patient also have osteoporosis I have added vitamin-D level Multiple joint arthritis stable She had elevated lipids but family does not want any treatment for that She has appointment in April for physical examination Medications: Refilled [Adult diapers with tabs] 3 times a day 100 ea 11RF Urine incontinence F02.80 - Dementia in other diseases classified elsewhere, unspecified severity, without behavioral disturbance, psychotic disturbance, mood disturbance, and anxiety, G30.9 - Alzheimer's disease, unspecified, N39.46 - Mixed incontinence [cleansing wips] As directed 100 ea 11RF F02.80 - Dementia in other diseases classified elsewhere, unspecified severity, without behavioral disturbance, psychotic disturbance, mood disturbance, and anxiety, G30.9 - Alzheimer's disease, unspecified, M19.90 - Unspecified osteoarthritis, unspecified site, N39.46 - Mixed incontinence, R54 - Age-related physical debility [Adult diapers with tabs] 3 times a day 100 ea 11RF Urine incontinence F02.80 - Dementia in other diseases classified elsewhere, unspecified severity, without behavioral disturbance, psychotic disturbance, mood disturbance, and anxiety, G30.9 - Alzheimer's disease, unspecified, N39.46 - Mixed incontinence acetaminophen 325 mg PO TID 90 days PRN 240 tabs 0RF pain loratadine 10 mg PO DAILY 90 days 90 caps 3RF [cleansing wips] As directed 100 ea 11RF F02.80 - Dementia in other diseases classified elsewhere, unspecified severity, without behavioral disturbance, psychotic disturbance, mood disturbance, and anxiety, G30.9 - Alzheimer's disease, unspecified, M19.90 - Unspecified osteoarthritis, unspecified site, N39.46 - Mixed incontinence, R54 - Age-related physical debility fluticasone propionate 50 mcg/actuation 1 spray intranasal DAILY 16 mL 3RF
== END 2024-01-12 13:28 | disposition home or self-care (01) ==
PROVIDERS: PCP Internal Medicine; Visit Provider Internal Medicine
DX: G30.9 Alzheimer's disease, unspecified (principal); F02.80 Dementia in other diseases classified elsewhere, unspecified severity, without behavioral disturbance, psychotic disturbance, mood disturbance, and anxiety; Z91.09 Other allergy status, other than to drugs and biological substances; M81.0 Age-related osteoporosis without current pathological fracture; R54 Age-related physical debility; N39.46 Mixed incontinence; R63.0 Anorexia

== ENCOUNTER → 2024-01-12 12:07 | Outpatient (BNVA) | payer OTHER, SELFPAY | PROVIDERS: PCP Internal Medicine; Visit Provider Internal Medicine | DX: G30.9 Alzheimer's disease, unspecified (principal); F02.80 Dementia in other diseases classified elsewhere, unspecified severity, without behavioral disturbance, psychotic disturbance, mood disturbance, and anxiety; M81.0 Age-related osteoporosis without current pathological fracture; R54 Age-related physical debility; N39.46 Mixed incontinence; R63.0 Anorexia; Z91.09 Other allergy status, other than to drugs and biological substances | CPT/HCPCS: 96127; 99212 ==

== ENCOUNTER 2025-02-04 13:30 | Outpatient (AMB) | payer OTHER, SELFPAY ==
--- NOTE | 2025-02-04 13:33 | A.OFFPC_ITS ---
Vital Signs 02/04/25 13:36 Height 5 ft 0.7 in Weight 109 lb BMI 20.8 BP 136/56 L Blood Pressure Location Rt brachial Position Sitting Respiration 16 Pulse 63 Pulse Source Pulse Oximeter Temp 97.4 F Temp Source Oral Pulse Oximetry (%) 96 Oxygen Delivery Method Room Air Intake Visit Reasons: Med review Allergies No Known Allergies Allergy (Verified 01/12/24 12:11) Medication List - Last Reconciled 02/04/25 by Rajni Holliday MD [cleansing wips As directed] acetaminophen 325 mg PO TID PRN 90 days [Adult diapers with tabs 3 times a day] donepezil 5 mg PO DAILY facial-body wipes As directed fluoxetine 40 mg PO DAILY fluticasone propionate 50 mcg/actuation 1 spray intranasal DAILY food supplemt, lactose-reduced (Ensure oral liquid) 1 ea PO DAILY 90 days hydroxyzine HCl 25 mg PO BEDTIME latex gloves (Latex Gloves, Medium) As directed-3 pair per day loratadine 10 mg PO DAILY 90 days memantine 10 mg PO BID naphazoline-pheniramine 0.025-0.3 % (Eye Allergy Relief (naphazoline-phen iramine)) 1 drp ophthalmic (eye) QID PRN 30 days Tobacco use date assessed: 09/06/23 Dental Screening Dental Screen Date: 09/06/23 HPI Med review HPI Details History of Present Illness The patient is an 84-year-old female presenting for management of worsening dementia symptoms. End-stage Dementia: - The patient has end-stage dementia wit h worsening symptoms, including memory loss, wandering all night, banging on doors, and trying to leave the house. - She has become resistant to care, refu sing to shower, and is reportedly not eating. - The patient is currently taking donepe zil and memantine for her condition. - She recently returned from staying wit h another daughter, during which time she missed her neurology appointment; a new appointment is scheduled for March. Insomnia: - The patient experiences severe insomni a, being unable to sleep at night and wandering throughout the house. - The family attempted to treat this wit h melatonin gummies for three days without any improvement in her sleep. Medical History: - End-stage dementia - Unrine incontence requiring diapers - sever anxiety Medications: - Donepezil - Memantine Social History: - The patient lives with her son and ana de [id number]-val, who is her primary caregiver. - The family is experiencing significant caregiver stress and is seeking assistance from [facility] for adult day care or foster care services. - The patient has functional impairments , including wandering at night, attempting to leave the home, and refusing to take a shower. - Her family reports that she is not eat ing. Problem List - End-stage dementia - Insomnia - Behavioral disturbances associated wit h dementia Plan - A new medication, risperidone 0.5 mg, will be started to be taken at night to help with insomnia and agitation. - A 30-day supply of her current medicat ions, including donepezil and memantine, will be sent. - The family should ensure the patient a ttends her neurology appointment in [facility] [place], as the neurologist should manage her dementia medications long-term. - Paperwork for [facility] was s igned to facilitate support services. - A prescription for wipes will be sent. - Labs were ordered and should be drawn today. - A follow-up visit is scheduled in e weeks to evaluate the effectiveness of the new medication. Review of Systems - General: No fever no chills - Cardiovascular: No syncope - Gastrointestinal: No nausea vomiting or diarrhea Physical Exam - General: No acute distress - HEENT: No acute findings - Neck: Supple - Respiratory system: clear to ausculat ion - Cardiovascular: S1-S2 regular in rate and rhythm - Gastrointestinal: No pain - Extremities: No new findings - TRANSITION MGR RN: able to get up from chair and wa lk - Skin: Normal turgor [facility] Medical History Arthrosis Urinary incontinence, mixed Frail elderly Osteoporosis Anxiety Environmental allergies Alzheimers disease Surgical History No pertinent past surgical history Family History Father No problems noted. Mother HTN (hypertension) Social History Housing: House Alcohol intake: never Patient Tobacco Use Status: Never used Tobacco e-Cigarette/Vaping Use: Never Used service: No Current occupational status: retired Cognitive needs: Yes Hearing needs: No Vision needs: No Questionnaire Thrive Questionnaire Date Thrive assessed: 01/02/24 I am a: Patient What is your living situation today?: I have a steady place to live Within the past 12 months, did the food you bought not last and you didn't have the money to get more?: Sometimes True Within the past 12 months, did you worry whether your food would run out before you got money to buy more?: Sometimes True Do you have trouble paying for medicines?: No Do you have trouble getting transportation to medical appointments?: No Do you have trouble paying your heating and electricity bill?: No Do you have trouble taking care of your child, family member or friend?: No Do you have trouble with day-to-day activities such as bathing, preparing meals, shopping, managing finances, etc.?: Yes Are you interested in more education?: No Please select the resources that you would like help with: None Currently or been in a relationship where the following occur: No concerns reported THRIVE Score: 2 AVTAR-7 AMB Questionnaire AVTAR-7 Date AVTAR - 7 assessed: 04/12/23 Source: Developed by Drs. Sumit Mancera, Gisella Olivares, Lew Rudolph and colleagues, with an educational david from [employer]. Physical exam (Primary Care) Vital Signs: Last Vital Signs Temp 97.4 F 02/04/25 13:36 Pulse 63 02/04/25 13:36 Resp 16 02/04/25 13:36 BP 136/56 L 02/04/25 13:36 Pulse Ox 96 02/04/25 13:36 Oxygen Delivery Method Room Air 02/04/25 13:36 BMI result Body Mass Index 20.8 Tobacco/Smoking Status: Tobacco use Status Tobacco use date assessed 09/06/23 02/04/25 13:36 Patient Tobacco Use Status Never used Tobacco 02/04/25 13:36 e-Cigarette/Vaping Use Never Used 02/04/25 13:36 Thrive Assessment: Date of Thrive Assessment Date Thrive assessed 01/02/24 02/04/25 13:36 Currently or been in a relationship where the following occur: No concerns reported Coding Level of Care Code Est Pt Level 4 (24772) Diagnoses Alzheimers disease G30.9; F02.80 Urinary incontinence, mixed N39.46 Anxiety F41.9 Environmental allergies Z91.09 Frail elderly R54 Assessment & Plan Assessment & Plan (1) Alzheimers disease: Code(s): G30.9 - Alzheimer's disease, unspecified; F02.80 - Dementia in other diseases classified elsewhere, unspecified severity, without behavioral disturbance, psychotic disturbance, mood disturbance, and anxiety Category: Medical (2) Urinary incontinence, mixed: Code(s): N39.46 - Mixed incontinence Category: Medical (3) Anxiety: Code(s): F41.9 - Anxiety disorder, unspecified Category: Medical (4) Environmental allergies: Code(s): Z91.09 - Other allergy status, other than to drugs and biological substances Category: Medical (5) Frail elderly: Code(s): R54 - Age-related physical debility Category: Medical Plan End-stage Dementia: - The patient has end-stage dementia with worsening symptoms, including memory loss, wandering all night, banging on doors, and trying to leave the house. - She has become resistant to care, refusing to shower, and is reportedly not eating. - The patient is currently taking donepezil and memantine for her condition. - She recently returned from staying with another daughter, during which time she missed her neurology appointment; a new appointment is scheduled for March. Insomnia: - The patient experiences severe insomnia, being unable to sleep at night and wandering throughout the house. - The family attempted to treat this with melatonin gummies for three days without any improvement in her sleep. Medical History: - End-stage dementia - Unrine incontence requiring diapers - sever anxiety Medications: - Donepezil - Memantine Social History: - The patient lives with her son and tbisjdav-hi-cct, who is her primary caregiver. - The family is experiencing significant caregiver stress and is seeking assistance from [facility] for adult day care or foster care services. - The patient has functional impairments, including wandering at night, attempting to leave the home, and refusing to take a shower. - Her family reports that she is not eating. Problem List - End-stage dementia - Insomnia - Behavioral disturbances associated with dementia Plan - A new medication, risperidone 0.5 mg, will be started to be taken at night to help with insomnia and agitation. - A 30-day supply of her current medications, including donepezil and memantine, will be sent. - The family should ensure the patient attends her neurology appointment in March, as the neurologist should manage her dementia medications long-term. - Paperwork for [facility] was signed to facilitate support services. - A prescription for wipes will be sent. - Labs were ordered and should be drawn today. - A follow-up visit is scheduled in three weeks to evaluate the effectiveness of the new medication. Orders: Orders Complete Blood Count Auto Diff Today F02.80 - Dementia in other diseases classified elsewhere, unspecified severity, without behavioral disturbance, psychotic disturbance, mood disturbance, and anxiety, F41.9 - Anxiety disorder, unspecified, G30.9 - Alzheimer's disease, unspecified, N39.46 - Mixed incontinence, R54 - Age-related physical debility, Z91.09 - Other allergy status, other than to drugs and biological substances Comprehensive Met. Panel Today F02.80 - Dementia in other diseases classified elsewhere, unspecified severity, without behavioral disturbance, psychotic disturbance, mood disturbance, and anxiety, F41.9 - Anxiety disorder, unspecified, G30.9 - Alzheimer's disease, unspecified, N39.46 - Mixed incontinence, R54 - Age-related physical debility, Z91.09 - Other allergy statu s, other than to drugs and biological substances TSH reflex Free T4 Today F02.80 - Dementia in other diseases classified elsewhere, unspecified severity, without behavioral disturbance, psychotic disturbance, mood disturbance, and anxiety, F41.9 - Anxiety disorder, unspecified, G30.9 - Alzheimer's disease, unspecified, N39.46 - Mixed incontinence, R54 - Age-related physical debility, Z91.09 - Other allergy status, other than to drugs and biological substances Medications: New donepezil 5 mg PO DAILY 30 tabs 0RF fluoxetine 40 mg PO DAILY 30 caps 0RF memantine 10 mg PO BID 60 tabs 0RF risperidone 0.25 mg PO BEDTIME 30 tabs 0RF
[2025-02-04 13:36] VITALS: BP 136/56; PULSE 63; RESP 16; TEMP 36.3; O2SAT 96; BMI 20.8
== END 2025-02-04 14:08 | disposition home or self-care (01) ==
LOC: HO.HMCC 13:31
PROVIDERS: PCP Internal Medicine; Visit Provider Internal Medicine
DX: G30.9 Alzheimer's disease, unspecified (principal); F02.80 Dementia in other diseases classified elsewhere, unspecified severity, without behavioral disturbance, psychotic disturbance, mood disturbance, and anxiety; N39.46 Mixed incontinence; F41.9 Anxiety disorder, unspecified; Z91.09 Other allergy status, other than to drugs and biological substances; R54 Age-related physical debility

== ENCOUNTER 2025-02-04 13:30 | Outpatient (REF) | payer OTHER, SELFPAY ==
[2025-02-04 16:28] LABS: MANUAL DIFF FLAG NO
[2025-02-04 16:52] LABS: Hematocrit 40.9 % (37.0-47.0); Hemoglobin 12.5 g/dl (12.0-16.0); Imm Gran Abs Auto 0.02 X10*3/uL (0.00-0.03); Imm Gran Pct Auto 0.3 % (0.0-0.4); Lymphocytes Absolute Auto 2.2 X10*3/uL (1.2-4.9); Mean Corpuscular HGB Conc 30.6 g/dl (31.0-35.0); Mean Corpuscular Hemoglobin 26.8 pg (27.0-33.0); Mean Corpuscular Volume 87.6 fL (80.0-98.0); NRBC Abs Auto 0.000 X10*3/uL (0.0-0.012); NRBC Pct Auto 0.0 /100WBC (0.0-0.2); Platelet Count 313 X10*3/uL (160-400); Red Blood Count 4.67 X10*6/uL (4.20-5.50); White Blood Count 7.0 X10*3/uL (4.8-10.8)
[2025-02-04 17:01] LABS: Alanine Aminotransferase 14 U/L (0-31); Albumin Level 4.3 g/dL (3.5-5.0); Alkaline Phosphatase 82 U/L (39-117); Anion Gap 10 (12-20); Aspartate Amino Transferase 27 U/L (5-31); Blood Urea Nitrogen 19 mg/dL (9-16); Calcium 9.8 mg/dL (8.4-10.2); Carbon Dioxide 33 mmol/L (22-29); Chloride 104 mmol/L (96-108); Estimated Glomerular Filt Rate 58; Potassium 4.7 mmol/L (3.3-5.1); Sodium 142 mmol/L (135-145); Total Protein 7.2 g/dL (6.5-8.0)
== END 2025-02-04 13:31 | disposition home or self-care (01) ==
LOC: HO.HMGCLDS 13:30
PROVIDERS: PCP Internal Medicine; Visit Provider Internal Medicine
DX: N39.46 Mixed incontinence (principal); F41.9 Anxiety disorder, unspecified; R54 Age-related physical debility; G30.9 Alzheimer's disease, unspecified; F02.80 Dementia in other diseases classified elsewhere, unspecified severity, without behavioral disturbance, psychotic disturbance, mood disturbance, and anxiety; G47.00 Insomnia, unspecified; Z91.09 Other allergy status, other than to drugs and biological substances
CPT/HCPCS: 36415; 80053; 84443; 85025; 99212

== ENCOUNTER 2025-02-25 12:55 | Outpatient (AMB) | payer OTHER, SELFPAY ==
[2025-02-25 13:04] VITALS: BP 116/60; PULSE 77; RESP 15; O2SAT 98; BMI 20.6
--- NOTE | 2025-02-25 13:04 | A.OFFPC_ITS ---
Vital Signs 02/25/25 13:04 Height 5 ft 0.7 in Weight 108 lb BMI 20.6 BP 116/60 Blood Pressure Location Rt brachial Position Sitting Respiration 15 Pulse 77 Pulse Source Pulse Oximeter Pulse Oximetry (%) 98 Oxygen Delivery Method Room Air Intake Visit Reasons: 3 weeks f/up Allergies No Known Allergies Allergy (Verified 02/25/25 13:06) Tobacco use date assessed: 02/25/25 Fall risk assessment: No Falls in past year Last assessed Fall Risk: 02/25/25 Dental Screening Dental Screen Date: 02/25/25 Did you have a dental visit in the last 12 months?: No Did you have a dental problem in the last 6 months where you did not have access to dental care?: No Was dental information given to patient?: Patient declined [facility] Medical History Arthrosis Urinary incontinence, mixed Frail elderly Osteoporosis Anxiety Environmental allergies Alzheimers disease Surgical History No pertinent past surgical history Family History Father No problems noted. Mother HTN (hypertension) Social History Housing: House Alcohol intake: never Patient Tobacco Use Status: Never used Tobacco e-Cigarette/Vaping Use: Never Used service: No Current occupational status: retired Cognitive needs: Yes Hearing needs: No Vision needs: No Questionnaire PHQ-9 Over the last 2 weeks, how often have you been bothered by any of the following problems? 1. Little interest or pleasure in doing things: several days 2. Feeling down, depressed, or hopeless: not at all 3. Trouble falling or staying asleep, or sleeping too much: not at all 4. Feeling tired or having little energy: several days 5. Poor appetite or overeating: several days 6. Feeling bad about yourself - or that you are a failure or have let yourself or your family down: not at all 7. Trouble concentrating on things, such as reading the newspaper or watching television: more than half the days 8. Moving or speaking so slowly that other people could have noticed. Or the opposite - being so fidgety or restless that you have been moving around a lot more than usual: more than half the days 9. Thoughts that you would be better off or of hurting yourself in some way : not at all Total score: 7 Depression Screening Interpretation: Negative Depression Screening Done: Yes 16655 - PHQ-9 Billing: Yes Source: Developed by Drs. Sumit Mancera, Gisella Olivares, Lew Rudolph and colleagues, with an educational david from [employer]. Thrive Questionnaire Date Thrive assessed: 01/02/24 I am a: Patient What is your living situation today?: I have a steady place to live Within the past 12 months, did the food you bought not last and you didn't have the money to get more?: Sometimes True Within the past 12 months, did you worry whether your food would run out before you got money to buy more?: Sometimes True Do you have trouble paying for medicines?: No Do you have trouble getting transportation to medical appointments?: No Do you have trouble paying your heating and electricity bill?: No Do you have trouble taking care of your child, family member or friend?: No Do you have trouble with day-to-day activities such as bathing, preparing meals, shopping, managing finances, etc.?: Yes Are you interested in more education?: No Please select the resources that you would like help with: None Currently or been in a relationship where the following occur: No concerns reported THRIVE Score: 2 AVTAR-7 AMB Questionnaire AVTAR-7 Date AVTAR - 7 assessed: 04/12/23 Source: Developed by Drs. Sumit Mancera, Gisella Olivares, Lew Rudolph and colleagues, with an educational david from [employer]. Physical exam (Primary Care) Tobacco/Smoking Status: Tobacco use Status Tobacco use date assessed 09/06/23 02/04/25 13:36 Patient Tobacco Use Status Never used Tobacco 02/04/25 13:36 e-Cigarette/Vaping Use Never Used 02/04/25 13:36 Depression Screening Interpretation: Negative Thrive Assessment: Date of Thrive Assessment Date Thrive assessed 01/02/24 02/04/25 13:36 Currently or been in a relationship where the following occur: No concerns reported Coding Additional Codes PHQ-9 - 85527 - PHQ-9 Billing: Yes ([id number])
--- NOTE | 2025-02-25 13:09 | A.OFFPC_ITS ---
Vital Signs 02/25/25 13:04 Height 5 ft 0.7 in Weight 108 lb BMI 20.6 BP 116/60 Blood Pressure Location Rt brachial Position Sitting Respiration 15 Pulse 77 Pulse Source Pulse Oximeter Pulse Oximetry (%) 98 Oxygen Delivery Method Room Air Intake Visit Reasons: 3 weeks f/up Allergies No Known Allergies Allergy (Verified 02/25/25 13:06) Medication List - Last Reconciled 02/25/25 by Rajni Holliday MD [cleansing wipes for incontinence As directed] acetaminophen 325 mg PO TID PRN 90 days [Adult diapers with tabs 3 times a day] [bath wipes As directed] [Disposable bed pads As directed] disposable gloves use as directed donepezil 5 mg PO DAILY facial-body wipes As directed fluoxetine 40 mg PO DAILY fluticasone propionate 50 mcg/actuation 1 spray intranasal DAILY food supplemt, lactose-reduced (Ensure oral liquid) 1 ea PO DAILY 90 days hydroxyzine HCl 25 mg PO BEDTIME latex gloves (Latex Gloves, Medium) As directed-3 pair per day loratadine 10 mg PO DAILY 90 days memantine 10 mg PO BID naphazoline-pheniramine 0.025-0.3 % (Eye Allergy Relief (naphazoline- pheniramine)) 1 drp ophthalmic (eye) QID PRN 30 days [Re-usable bed pads use As directed] risperidone 0.25 mg PO BEDTIME Tobacco use date assessed: 02/25/25 Dental Screening Dental Screen Date: 02/25/25 Did you have a dental visit in the last 12 months?: No Did you have a dental problem in the last 6 months where you did not have access to dental care?: No Was dental information given to patient?: Patient declined HPI 3 weeks f/up HPI Details History of Present Illness The patient is an 84-year-old female presenting for a follow-up visit for management of behavioral issues secondary to end-stage dementia. Dementia with behavioral disturbance: - The patient was seen three weeks ago f or significant behavioral issues, including refusing to bathe and wandering all night, which were causing distress for the family. - She was started on risperidone; 0.25 mg dose. - On the 0.25 mg dose, the caregiver rep orts the patient is doing better and her condition is more manageable. - While improved, she occasionally still wanders in her room around midnight. - She is now sleeping better and appears calmer. Back pain: - The patient has reports of back pain, for which acetaminophen was prescribed in January. Need for assistance: - The family requires an increase in Per elbert Hosiery Mender (BUMPER AND PAINTER) hours to provide adequate supervision due to her tendency to wander. Medical History: - End-stage dementia with behavioral dis turbance Medications: - Risperidone 0.25 mg for behavioral sym ptoms of dementia. - Acetaminophen for back pain. Social History: - The patient lives with family who prov january care. - Requires assistance with activities of daily living, such as bathing. - Has a history of wandering, requiring constant supervision. - The family is requesting increased Per elbert Hosiery Mender (BUMPER AND PAINTER) hours. Problem List - End-stage dementia with behavioral dis turbance - Back pain - Need for increased personal care jany tance - Need for durable medical equipment Plan - Continue risperidone 0.25 mg nightly. - Administer acetaminophen up to three t imes a day as needed for back pain; will resend the prescription, but it may be an [id number] purchase if not covered by insurance. - Instructed caregiver to have the [employer] send paperwork to the office for signature to request an increase in hours; approval is contingent on the insurance company. - Will provide a prescription for bath w ipes today, to be filled at a medical supply store. - Will initiate the process for prescrip tions for a walker and a bathroom chair, which will be mailed to the caregiver. - Schedule a follow-up visit with a phys ical exam in 2-3 months. Review of Systems - General: No fever no chills - Neurological: No headaches no dizziness - Ear nose throat: No sore throat no hearing difficulty no ear pain - Cardiovascular: No syncope, no chest pain, no palpitations - Gastrointestinal: No nausea vomiting or diarrhea Physical Exam - General: No acute distress - HEENT: No acute findings - Neck: Supple - Respiratory system: Able to talk in f ull sentences, no audible wheeze - Cardiovascular: S1-S2 regular in rate and rhythm - Gastrointestinal: No pain - Extremities: No new findings - SECONDARY ART TEACHER: Alert awake - Skin: Normal turgor [facility] Medical History Arthrosis Urinary incontinence, mixed Frail elderly Osteoporosis Anxiety Environmental allergies Alzheimers disease Surgical History No pertinent past surgical history Family History Father No problems noted. Mother HTN (hypertension) Social History Housing: House Alcohol intake: never Patient Tobacco Use Status: Never used Tobacco e-Cigarette/Vaping Use: Never Used service: No Current occupational status: retired Cognitive needs: Yes Hearing needs: No Vision needs: No Questionnaire PHQ-9 Over the last 2 weeks, how often have you been bothered by any of the following problems? 1. Little interest or pleasure in doing things: several days 2. Feeling down, depressed, or hopeless: not at all 3. Trouble falling or staying asleep, or sleeping too much: not at all 4. Feeling tired or having little energy: several days 5. Poor appetite or overeating: several days 6. Feeling bad about yourself - or that you are a failure or have let yourself or your family down: not at all 7. Trouble concentrating on things, such as reading the newspaper or watching television: more than half the days 8. Moving or speaking so slowly that other people could have noticed. Or the opposite - being so fidgety or restless that you have been moving around a lot more than usual: more than half the days 9. Thoughts that you would be better off or of hurting yourself in some way: not at all Total score: 7 Depression Screening Interpretation: Negative Depression Screening Done: Yes 29417 - PHQ-9 Billing: Yes Source: Developed by Drs. Sumit Mancera, Gisella Olivares, Lew Rudolph and colleagues, with an educational david from [employer]. Thrive Questionnaire Date Thrive assessed: 01/02/24 I am a: Patient What is your living situation today?: I have a steady place to live Within the past 12 months, did the food you bought not last and you didn't have the money to get more?: Sometimes True Within the past 12 months, did you worry whether your food would run out before you got money to buy more?: Sometimes True Do you have trouble paying for medicines?: No Do you have trouble getting transportation to medical appointments?: No Do you have trouble paying your heating and electricity bill?: No Do you have trouble taking care of your child, family member or friend?: No Do you have trouble with day-to-day activities such as bathing, preparing meals, shopping, managing finances, etc.?: Yes Are you interested in more education?: No Please select the resources that you would like help with: None Currently or been in a relationship where the following occur: No concerns reported THRIVE Score: 2 AVTAR-7 AMB Questionnaire AVTAR-7 Date AVTAR - 7 assessed: 04/12/23 Source: Developed by Drs. Sumit Mancera, Gisella Olivares, Lew Rudolph and colleagues, with an educational david from [employer]. Physical exam (Primary Care) Vital Signs: Last Vital Signs Pulse 77 02/25/25 13:04 Resp 15 02/25/25 13:04 BP 116/60 02/25/25 13:04 Pulse Ox 98 02/25/25 13:04 Oxygen Delivery Method Room Air 02/25/25 13:04 BMI result Body Mass Index 20.6 Tobacco/Smoking Status: Tobacco use Status Tobacco use date assessed 02/25/25 02/25/25 13:19 Patient Tobacco Use Status Never used Tobacco 02/25/25 13:19 e-Cigarette/Vaping Use Never Used 02/25/25 13:19 PHQ-9: PHQ-9 Score PHQ-9: Total score 7 02/25/25 13:19 Depression Screening Interpretation: Negative Thrive Assessment: Date of Thrive Assessment Date Thrive assessed 01/02/24 02/25/25 13:19 Currently or been in a relationship where the following occur: No concerns reported Coding Level of Care Code Est Pt Level 4 (53879) Diagnoses Wandering R46.89 Alzheimers disease G30.9; F02.80 Frail elderly R54 Risk for falls Z91.81 Impaired mobility and ADLs Z74.09; Z78.9 Anxiety F41.9 Additional Codes PHQ-9 - 53837 - PHQ-9 Billing: Yes ([id number]) Assessment & Plan Assessment & Plan (1) Wandering: Code(s): R46.89 - Other symptoms and signs involving appearance and behavior Category: Medical (2) Alzheimers disease: Code(s): G30.9 - Alzheimer's disease, unspecified; F02.80 - Dementia in other diseases classified elsewhere, unspecified severity, without behavioral disturbance, psychotic disturbance, mood disturbance, and anxiety Category: Medical (3) Frail elderly: Code(s): R54 - Age-related physical debility Category: Medical (4) Risk for falls: Code(s): Z91.81 - History of falling Category: Medical (5) Impaired mobility and ADLs: Code(s): Z74.09 - Other reduced mobility; Z78.9 - Other specified health status Category: Medical (6) Anxiety: Code(s): F41.9 - Anxiety disorder, unspecified Category: Medical Plan Dementia with behavioral disturbance: - The patient was seen three weeks ago for significant behavioral issues, including refusing to bathe and wandering all night, which were causing distress for the family. - She was started on risperidone; 0.25 mg dose. - On the 0.25 mg dose, the caregiver reports the patient is doing better and her condition is more manageable. - While improved, she occasionally still wanders in her room around midnight. - She is now sleeping better and appears calmer. Back pain: - The patient has reports of back pain, for which acetaminophen was prescribed in January. Need for assistance: - The family requires an increase in Eeg Technician (BUMPER AND PAINTER) hours to provide adequate supervision due to her tendency to wander. Medical History: - End-stage dementia with behavioral disturbance Medications: - Risperidone 0.25 mg for behavioral symptoms of dementia. - Acetaminophen for back pain. Social History: - The patient lives with family who provide care. - Requires assistance with activities of daily living, such as bathing. - Has a history of wandering, requiring constant supervision. - The family is requesting increased Eeg Technician (BUMPER AND PAINTER) hours. Problem List - End-stage dementia with behavioral disturbance - Back pain - Need for increased personal care assistance - Need for durable medical equipment Plan - Continue risperidone 0.25 mg nightly. - Administer acetaminophen up to three times a day as needed for back pain; will resend the prescription, but it may be an [id number] purchase if not covered by insurance. - Instructed caregiver to have the [employer] send paperwork to the office for signature to request an increase in hours; approval is contingent on the insurance company. - Will provide a prescription for bath wipes today, to be filled at a medical supply store. - Will initiate the process for prescriptions for a walker and a bathroom chair, which will be mailed to the caregiver. - Schedule a follow-up visit with a physical exam in 2-3 months. Medications: Refilled [bath wipes] As directed 30 ea 11RF F02.80 - Dementia in other diseases class ified elsewhere, unspecified severity, without behavioral disturbance, psychotic disturbance, mood disturbance, and anxiety, F41.9 - Anxiety disorder, unspecified, G30.9 - Alzheimer's disease, unspecified, R54 - Age-related physical debility acetaminophen 325 mg PO TID PRN 240 tabs 0RF pain 90 days
== END 2025-02-25 13:21 | disposition home or self-care (01) ==
LOC: HO.HMCC 12:56
PROVIDERS: PCP Internal Medicine; Visit Provider Internal Medicine
DX: R46.89 Other symptoms and signs involving appearance and behavior (principal); G30.9 Alzheimer's disease, unspecified; F02.80 Dementia in other diseases classified elsewhere, unspecified severity, without behavioral disturbance, psychotic disturbance, mood disturbance, and anxiety; R54 Age-related physical debility; Z91.81 History of falling; Z74.09 Other reduced mobility; Z78.9 Other specified health status; F41.9 Anxiety disorder, unspecified

== ENCOUNTER → 2025-02-25 12:55 | Outpatient (BNVA) | payer OTHER, SELFPAY | PROVIDERS: PCP Internal Medicine; Visit Provider Internal Medicine | DX: G30.9 Alzheimer's disease, unspecified (principal); F02.80 Dementia in other diseases classified elsewhere, unspecified severity, without behavioral disturbance, psychotic disturbance, mood disturbance, and anxiety; R54 Age-related physical debility; F41.9 Anxiety disorder, unspecified; Z74.09 Other reduced mobility; Z78.9 Other specified health status; Z91.81 History of falling; Z79.899 Other long term (current) drug therapy | CPT/HCPCS: 96127; 99212 ==